=== PATIENT | male | born 1985 | race Two or more races ===

== ENCOUNTER 2019-05-03 14:31 | Emergency (ER) | payer MEDICAID, OTHER ==
[~2019-05-03] VITALS: Ht 175.3 cm; Wt 90.7 kg
[2019-05-03] MEDS ORDERED: KETOROLAC TROMETH 60MG/2ML VIAL IM ONE (16:45)
[2019-05-03] MEDS ORDERED: TETANUS-DIPTH-ACEL PERTUSSIS 0.5ML SYRG IM ONE (16:45)
[2019-05-03] MEDS ORDERED: SILVER NITRATE-POTAS NITRA STICK TOP ONE (16:45)
[2019-05-03 17:03] VITALS: BP 128/78
== END 2019-05-03 17:24 | disposition home or self-care (01) ==
LOC: EDBD → ER 14:38
DX: S68.111A Complete traumatic metacarpophalangeal amputation of left index finger, initial encounter (principal); W26.8XXA Contact with other sharp object(s), not elsewhere classified, initial encounter; Y93.89 Activity, other specified; Y92.89 Other specified places as the place of occurrence of the external cause; Y99.8 Other external cause status
CPT/HCPCS: 90471; 90715; 96372; 99283; J1885

== ENCOUNTER 2019-05-06 14:18 | Emergency (ER) | payer MEDICAID ==
[~2019-05-06] VITALS: Ht 175.3 cm; Wt 90.7 kg
[2019-05-06 14:27] VITALS: BP 122/81
== END 2019-05-06 15:10 | disposition home or self-care (01) ==
LOC: ER 14:18 → EDUNIT# 14:18 → ER 15:10
DX: S61.301D Unspecified open wound of left index finger with damage to nail, subsequent encounter (principal); X58.XXXD Exposure to other specified factors, subsequent encounter